=== PATIENT | female | born 1985 | race African-American/Black ===

== ENCOUNTER 2023-03-29 10:57 | Inpatient (IN) | payer OTHER ==
[2023-03-29 11:29] VITALS: BMI 23.2
[2023-03-29] MEDS ORDERED: IBUPROFEN 400 MG TABLET (FP) PO PRN (11:47)
[2023-03-29] MEDS ORDERED: BENZONATATE 200 MG CAPSULE PO PRN (11:47)
[2023-03-29] MEDS ORDERED: POLYETHYLENE GLYCOL (HEALTHYLAX) 3350 17 GM PACKET PO PRN (11:47)
[2023-03-29] MEDS ORDERED: ONDANSETRON *ODT* 4 MG TABLET SL PRN (11:47)
[2023-03-29] MEDS ORDERED: BISMUTH SUBSALICYLATE 524 MG/30 ML PO PRN (11:47)
[2023-03-29] MEDS ORDERED: DICYCLOMINE HCL 10 MG CAPSULE PO PRN (11:47)
[2023-03-29] MEDS ORDERED: ACETAMINOPHEN 325 MG TABLET (FP) PO PRN (11:47)
[2023-03-29] MEDS ORDERED: LOPERAMIDE HCL 2 MG CAPSULE PO PRN (11:47)
[2023-03-29] MEDS ORDERED: guaiFENesin 600 MG TABLET.ER (FP) PO PRN (11:47)
[2023-03-29] MEDS ORDERED: BENZOCAINE/MENTHOL (CHLORASEPTIC ) LOZENGE MM PRN (11:47)
[2023-03-29] MEDS ORDERED: MAG HYDROX/AL HYDROX/SIMETH 30 ML UNIT-DOSE CUP PO PRN (11:47)
[2023-03-29] MEDS ORDERED: NALOXONE HCL (KLOXXADO) 8 MG SPRAY NS PRN (11:47)
[2023-03-29] MEDS ORDERED: NALOXONE HCL 0.4 MG/ML VIAL IM PRN (11:47)
[2023-03-29] MEDS ORDERED: MAGNESIUM HYDROX 2400MG/30ML ORAL SUSPENSION 30 ML CUP PO PRN (11:47)
[2023-03-29] MEDS ORDERED: LORazepam 1 MG TABLET PO PRN (11:47)
[2023-03-29] MEDS ORDERED: hydrOXYzine PAMOATE 25 MG CAPSULE (FP) PO PRN (11:47)
[2023-03-29] MEDS ORDERED: PRENATAL VITAMINS W/ FOLIC ACID TABLET (FP) PO ONE (13:49)
[2023-03-29] MEDS: PRENATAL VITAMINS W/ FOLIC ACID TABLET (FP) PO SCH (13:53)
[2023-03-29] MEDS: NICOTINE 14 MG/24 HOURS TOPICAL PATCH TD SCH (13:54)
[2023-03-29] MEDS: IBUPROFEN 600 MG TABLET (FP) PO PRN (15:54)
[2023-03-29 16:31] LABS: HEMATOCRIT 35.9 % (32.4-45.2); HEMOGLOBIN 11.5 GM/dL (10.7-15.3); MCH 29.6 pg (25.7-33.7); MCHC 32.2 g/dl (32.0-36.0); MEAN CELL VOLUME 92.1 fl (80-96); MEAN PLT VOLUME 7.4 fl (7.5-11.1); PLATELET COUNT 450 10^3/uL (134-434); RDW 15.5 % (11.6-15.6); WHITE BLOOD COUNT 7.4 K/mm3 (4.0-10.0)
[2023-03-29 16:57] LABS: POTASSIUM 4.8 mmol/L (3.5-5.1)
[2023-03-29 17:04] LABS: ALBUMIN 3.3 g/dl (3.4-5.0); BLOOD UREA NITROGEN 15.2 mg/dL (7-18); CALCIUM 8.7 mg/dL (8.5-10.1)
[2023-03-29 17:07] LABS: CREATININE 0.8 mg/dL (0.55-1.3)
[2023-03-29 17:08] LABS: TOT PROT 7.8 g/dl (6.4-8.2)
[2023-03-29 17:10] LABS: BILIRUBIN,TOTAL 0.3 mg/dL (0.2-1)
[2023-03-29] MEDS: LORazepam 2 MG TABLET PO SCH ×2 (17:51→22:43)
[2023-03-29] MEDS: MELATONIN 5 MG TABLETS PO SCH (22:42)
[2023-03-29] MEDS: THIAMINE HCL 100 MG TABLET (FP) PO SCH (22:43)
[2023-03-30] MEDS: LORazepam 2 MG TABLET PO SCH ×4 (05:35→22:29)
[2023-03-30] MEDS: ALBUTEROL SO4 HFA INHALER IH PRN (05:50)
[2023-03-30] MEDS: PRENATAL VITAMINS W/ FOLIC ACID TABLET (FP) PO SCH (10:08)
[2023-03-30] MEDS: METHOCARBAMOL 500 MG TABLET PO PRN ×2 (10:09→17:35)
[2023-03-30] MEDS: IBUPROFEN 600 MG TABLET (FP) PO PRN ×2 (10:09→17:45)
[2023-03-30] MEDS: NICOTINE 14 MG/24 HOURS TOPICAL PATCH TD SCH (10:14)
[2023-03-30] MEDS ORDERED: levETIRAcetam 500 MG TABLET (FP) PO ONE (15:27)
[2023-03-30] MEDS ORDERED: levETIRAcetam 250 MG TABLET PO ONE (17:00)
[2023-03-30] MEDS ORDERED: levETIRAcetam 500 MG TABLET (FP) PO SCH (22:00)
[2023-03-30] MEDS: THIAMINE HCL 100 MG TABLET (FP) PO SCH (22:29)
[2023-03-30] MEDS: MELATONIN 5 MG TABLETS PO SCH (22:29)
[2023-03-31] MEDS: LORazepam 1 MG TABLET PO SCH ×4 (05:17→22:51)
[2023-03-31] MEDS: PRENATAL VITAMINS W/ FOLIC ACID TABLET (FP) PO SCH (10:03)
[2023-03-31] MEDS: NICOTINE 14 MG/24 HOURS TOPICAL PATCH TD SCH (10:03)
[2023-03-31] MEDS: levETIRAcetam 250 MG TABLET PO SCH ×2 (10:03→22:46)
[2023-03-31] MEDS: METHOCARBAMOL 500 MG TABLET PO PRN ×2 (10:04→19:35)
[2023-03-31] MEDS: THIAMINE HCL 100 MG TABLET (FP) PO SCH (22:46)
[2023-03-31] MEDS: MELATONIN 5 MG TABLETS PO SCH (22:51)
[2023-04-01] MEDS ORDERED: LORazepam 0.5 MG TABLET PO PRN
[2023-04-01] MEDS: METHOCARBAMOL 500 MG TABLET PO PRN (01:28)
[2023-04-01] MEDS: LORazepam 0.5 MG TABLET PO SCH ×2 (05:34→10:19)
[2023-04-01] MEDS: ALBUTEROL SO4 HFA INHALER IH PRN (05:35)
[2023-04-01] MEDS ORDERED: METHOCARBAMOL 500 MG TABLET PO PRN ×2 (09:31→11:47)
[2023-04-01 09:52] VITALS: BP 117/70; PULSE 99; RESP 18; TEMP 97.1
[2023-04-01] MEDS: PRENATAL VITAMINS W/ FOLIC ACID TABLET (FP) PO SCH (10:19)
[2023-04-01] MEDS: levETIRAcetam 250 MG TABLET PO SCH (10:19)
[2023-04-01] MEDS: NICOTINE 14 MG/24 HOURS TOPICAL PATCH TD SCH (10:19)
[2023-04-02] MEDS ORDERED: LORazepam 0.5 MG TABLET PO ONE (05:00)
== END 2023-04-01 10:43 | disposition home or self-care (01) | DRG 774 ==
LOC: YASAS 10:57 → Y3N 13:08
PROVIDERS: ADMIT Allergy & Immunology; ATTEND Surgery
PROC: HZ2ZZZZ Detoxification Services for Substance Abuse Treatment (ICD-10-PCS; principal; 2023-03-29)
DX: F10.230 Alcohol dependence with withdrawal, uncomplicated (principal); F14.20 Cocaine dependence, uncomplicated; F16.20 Hallucinogen dependence, uncomplicated; F12.20 Cannabis dependence, uncomplicated; F17.210 Nicotine dependence, cigarettes, uncomplicated; F19.24 Other psychoactive substance dependence with psychoactive substance-induced mood disorder; G40.909 Epilepsy, unspecified, not intractable, without status epilepticus; J45.909 Unspecified asthma, uncomplicated; Z56.0 Unemployment, unspecified; Z59.00 Homelessness unspecified
CPT/HCPCS: 36415; 80053; 80177; 81025; 85027; 86780; 87635; 87811; 93005; 93010

== ENCOUNTER 2023-06-06 17:18 | Inpatient (IN) | payer OTHER ==
[2023-06-06 18:26] VITALS: BMI 23.6
[2023-06-06] MEDS ORDERED: NALOXONE HCL 0.4 MG/ML VIAL IM PRN (21:28)
[2023-06-06] MEDS ORDERED: guaiFENesin 600 MG TABLET.ER (FP) PO PRN (21:28)
[2023-06-06] MEDS ORDERED: BENZONATATE 200 MG CAPSULE PO PRN (21:28)
[2023-06-06] MEDS ORDERED: LOPERAMIDE HCL 2 MG CAPSULE PO PRN (21:28)
[2023-06-06] MEDS ORDERED: IBUPROFEN 400 MG TABLET (FP) PO PRN (21:28)
[2023-06-06] MEDS ORDERED: ACETAMINOPHEN 325 MG TABLET (FP) PO PRN (21:28)
[2023-06-06] MEDS ORDERED: BENZOCAINE/MENTHOL (CHLORASEPTIC ) LOZENGE MM PRN (21:28)
[2023-06-06] MEDS ORDERED: NALOXONE HCL (KLOXXADO) 8 MG SPRAY NS PRN (21:28)
[2023-06-06] MEDS ORDERED: MAG HYDROX/AL HYDROX/SIMETH 30 ML UNIT-DOSE CUP PO PRN (21:28)
[2023-06-06] MEDS ORDERED: MAGNESIUM HYDROX 2400MG/30ML ORAL SUSPENSION 30 ML CUP PO PRN (21:28)
[2023-06-06] MEDS ORDERED: POLYETHYLENE GLYCOL (HEALTHYLAX) 3350 17 GM PACKET PO PRN (21:28)
[2023-06-06] MEDS ORDERED: ALBUTEROL SO4 HFA INHALER IH PRN (23:05)
[2023-06-07] MEDS: MELATONIN 5 MG TABLETS PO SCH ×2 (00:05→21:43)
[2023-06-07] MEDS: THIAMINE HCL 100 MG TABLET (FP) PO SCH ×2 (00:05→21:44)
[2023-06-07 01:42] VITALS: RESP 18
[2023-06-07] MEDS: IBUPROFEN 600 MG TABLET (FP) PO PRN (06:20)
[2023-06-07] MEDS ORDERED: TRIAMCINOLONE ACET 0.1% CREAM 15 GM TUBE TP SCH (10:00)
[2023-06-07] MEDS: PRENATAL VITAMINS W/ FOLIC ACID TABLET (FP) PO SCH (10:34)
[2023-06-07] MEDS: levETIRAcetam 250 MG TABLET PO SCH (10:34)
[2023-06-07] MEDS: TRIAMCINOLONE ACET 0.1% CREAM 80 GM TUBE TP SCH ×2 (11:01→21:44)
[2023-06-07] MEDS: COLLOIDAL OATMEAL 1 BAR EACH TP PRN (13:06)
[2023-06-07] MEDS: AMMONIUM LACTATE 12% LOTION 225 GM BOTTLE TP PRN (13:06)
[2023-06-07 16:34] LABS: HEMATOCRIT 27.3 % (32.4-45.2); MCH 29.5 pg (25.7-33.7); MEAN CELL VOLUME 89.6 fl (80-96); MEAN PLT VOLUME 6.8 fl (7.5-11.1); PLATELET COUNT 507 10^3/uL (134-434); RBC 3.04 M/mm3 (3.60-5.2); RDW 17.1 % (11.6-15.6); WHITE BLOOD COUNT 10.8 K/mm3 (4.0-10.0)
[2023-06-07 16:35] LABS: POTASSIUM 4.1 mmol/L (3.5-5.1)
[2023-06-07 16:41] LABS: CALCIUM 8.3 mg/dL (8.5-10.1)
[2023-06-07 16:42] LABS: ALBUMIN 2.4 g/dl (3.4-5.0); BLOOD UREA NITROGEN 12.9 mg/dL (7-18)
[2023-06-07 16:45] LABS: CREATININE 0.9 mg/dL (0.55-1.3)
[2023-06-07 17:01] LABS: BILIRUBIN,TOTAL 0.1 mg/dL (0.2-1)
[2023-06-07] MEDS: QUEtiapine FUMARATE 50 MG TABLET PO SCH (21:44)
[2023-06-07] MEDS: PRAZOSIN HCL 1 MG CAPSULE PO SCH (22:06)
[2023-06-08] MEDS: IBUPROFEN 600 MG TABLET (FP) PO PRN (06:53)
[2023-06-08] MEDS: TRIAMCINOLONE ACET 0.1% CREAM 80 GM TUBE TP SCH ×2 (10:11→21:08)
[2023-06-08] MEDS: PRENATAL VITAMINS W/ FOLIC ACID TABLET (FP) PO SCH (10:11)
[2023-06-08] MEDS: levETIRAcetam 250 MG TABLET PO SCH (10:11)
[2023-06-08] MEDS: hydrOXYzine PAMOATE 25 MG CAPSULE (FP) PO PRN (10:12)
[2023-06-08] MEDS: MELATONIN 5 MG TABLETS PO SCH (21:08)
[2023-06-08] MEDS: THIAMINE HCL 100 MG TABLET (FP) PO SCH (21:09)
[2023-06-08] MEDS: QUEtiapine FUMARATE 50 MG TABLET PO SCH (21:09)
[2023-06-08] MEDS: PRAZOSIN HCL 1 MG CAPSULE PO SCH (21:09)
[2023-06-09] MEDS: FERROUS SO4 325 MG TABLET (FP) PO SCH (07:22)
[2023-06-09] MEDS: PRENATAL VITAMINS W/ FOLIC ACID TABLET (FP) PO SCH (10:20)
[2023-06-09] MEDS: levETIRAcetam 250 MG TABLET PO SCH (10:20)
[2023-06-09] MEDS: TRIAMCINOLONE ACET 0.1% CREAM 80 GM TUBE TP SCH ×2 (10:21→21:32)
[2023-06-09] MEDS: hydrOXYzine PAMOATE 25 MG CAPSULE (FP) PO PRN ×2 (11:44→21:33)
[2023-06-09] MEDS: COLLOIDAL OATMEAL 1 BAR EACH TP PRN (11:44)
[2023-06-09] MEDS: AMMONIUM LACTATE 12% LOTION 225 GM BOTTLE TP PRN (11:44)
[2023-06-09] MEDS: MINERAL OIL/PETROLAT/WATER TOPICAL CREAM 113 GM JAR TP SCH ×2 (13:11→21:32)
[2023-06-09] MEDS: MELATONIN 5 MG TABLETS PO SCH (21:32)
[2023-06-09] MEDS: QUEtiapine FUMARATE 50 MG TABLET PO SCH (21:32)
[2023-06-09] MEDS: THIAMINE HCL 100 MG TABLET (FP) PO SCH (21:33)
[2023-06-09] MEDS: PRAZOSIN HCL 1 MG CAPSULE PO SCH (22:11)
[2023-06-10] MEDS: MINERAL OIL/PETROLAT/WATER TOPICAL CREAM 113 GM JAR TP SCH ×4 (06:36→21:40)
[2023-06-10] MEDS: FERROUS SO4 325 MG TABLET (FP) PO SCH (07:04)
[2023-06-10] MEDS: hydrOXYzine PAMOATE 25 MG CAPSULE (FP) PO PRN ×2 (07:06→18:06)
[2023-06-10] MEDS: TRIAMCINOLONE ACET 0.1% CREAM 80 GM TUBE TP SCH ×2 (09:52→21:41)
[2023-06-10] MEDS: levETIRAcetam 250 MG TABLET PO SCH (09:52)
[2023-06-10] MEDS: PRENATAL VITAMINS W/ FOLIC ACID TABLET (FP) PO SCH (09:52)
[2023-06-10] MEDS: IBUPROFEN 600 MG TABLET (FP) PO PRN (18:04)
[2023-06-10] MEDS: MELATONIN 5 MG TABLETS PO SCH (21:40)
[2023-06-10] MEDS: PRAZOSIN HCL 1 MG CAPSULE PO SCH (21:40)
[2023-06-10] MEDS: QUEtiapine FUMARATE 50 MG TABLET PO SCH (21:40)
[2023-06-10] MEDS: THIAMINE HCL 100 MG TABLET (FP) PO SCH (21:40)
[2023-06-11] MEDS: MINERAL OIL/PETROLAT/WATER TOPICAL CREAM 113 GM JAR TP SCH (06:53)
[2023-06-11] MEDS: IBUPROFEN 600 MG TABLET (FP) PO PRN (06:55)
[2023-06-11] MEDS: FERROUS SO4 325 MG TABLET (FP) PO SCH (07:10)
[2023-06-11 07:20] VITALS: BP 106/60; PULSE 96; TEMP 98.3
[2023-06-11] MEDS: levETIRAcetam 250 MG TABLET PO SCH (09:39)
[2023-06-11] MEDS: TRIAMCINOLONE ACET 0.1% CREAM 80 GM TUBE TP SCH (09:39)
[2023-06-11] MEDS: PRENATAL VITAMINS W/ FOLIC ACID TABLET (FP) PO SCH (09:39)
[2023-06-11] MEDS: hydrOXYzine PAMOATE 25 MG CAPSULE (FP) PO PRN (11:11)
== END 2023-06-11 12:45 | disposition home or self-care (01) | DRG 772 ==
LOC: YASAS 17:18 → Y5N 06-07 00:58
PROVIDERS: ADMIT Surgery; ATTEND Psychiatry & Neurology Pain Medicine
PROC: HZ42ZZZ Group Counseling for Substance Abuse Treatment, Cognitive-Behavioral (ICD-10-PCS; principal; 2023-06-07)
DX: F14.20 Cocaine dependence, uncomplicated (principal); F17.210 Nicotine dependence, cigarettes, uncomplicated; F43.10 Post-traumatic stress disorder, unspecified; D64.9 Anemia, unspecified; D72.829 Elevated white blood cell count, unspecified; G40.A11 Absence epileptic syndrome, intractable, with status epilepticus; L20.84 Intrinsic (allergic) eczema; J45.30 Mild persistent asthma, uncomplicated; Z59.00 Homelessness unspecified; Z56.0 Unemployment, unspecified
CPT/HCPCS: 36415; 80053; 85027; 86780; 87635